=== PATIENT | female | born 1985 | race Caucasian/White ===

== ENCOUNTER 2016-05-27 17:53 | Emergency (ER) | payer SELFPAY ==
[2016-05-27 18:51] LABS: BASOPHILS 0.2 % (0.0-2.0); EOSINOPHILS 2.1 % (0-7); HEMATOCRIT 38.3 % (36.0-48.0); IMMATURE GRANULOCYTES 0.3 % (0-5); LYMPHOCYTES 28.6 % (15-50); MCH 30.7 pg (26.0-34.0); MCHC 33.9 g/dL (31.0-37.0); MCV 90.5 fL (80.0-100.0); MEAN PLATELET VOLUME 9.5 fL (7.4-10.4); MONOCYTES 6.6 % (2-11); NEUTROPHILS 62.2 % (40-80); PLATELET COUNT 162 10x3/uL (130-400); RBC 4.23 10x6/uL (4.00-5.40); RDW 13.1 % (11.5-14.5); WBC 8.7 10x3/uL (4.8-10.8)
[2016-05-27 19:12] LABS: HCG SERUM POSITIVE (NEGATIVE)
== END 2016-05-28 00:35 | disposition home or self-care (01) ==
LOC: D.ER 17:53
PROVIDERS: Family Medicine
DX: O20.9 Hemorrhage in early pregnancy, unspecified (principal); Z3A.14 14 weeks gestation of pregnancy; F17.200 Nicotine dependence, unspecified, uncomplicated

== ENCOUNTER → 2016-09-23 13:45 | Outpatient (CLI) | payer MEDICAID ==
[2016-09-23 14:20] LABS: APPEARANCE HAZY (CLEAR); BILIRUBIN NEGATIVE (NEGATIVE); COLOR YELLOW (YELLOW); GLUCOSE NEGATIVE (NEGATIVE); KETONE NEGATIVE (NEGATIVE); LEUKOCYTE ESTERASE NEGATIVE (NEGATIVE); NITRITE NEGATIVE (NEGATIVE); PROTEIN NEGATIVE (NEGATIVE); UROBILINOGEN NORMAL (NORMAL)
[2016-09-23 17:18] LABS: BASOPHILS 0.2 % (0-2); EOSINOPHILS 1.9 % (0-7); HEMATOCRIT 34.5 % (36.0-48.0); HEMOGLOBIN 11.9 g/dL (12-16); IMMATURE GRANULOCYTES 0.6 % (0-5); LYMPHOCYTES 20.4 % (15-50); MCH 31.8 pg (26.0-34.0); MCHC 34.5 g/dL (31.0-37.0); MCV 92.2 fL (80.0-100.0); MEAN PLATELET VOLUME 9.1 fL (7.4-10.4); MONOCYTES 5.3 % (2-11); NEUTROPHILS 71.6 % (40-80); PLATELET COUNT 146 10x3/uL (130-400); RBC 3.74 10x6/uL (4.00-5.40); RDW 13.8 % (11.5-14.5); WBC 11.5 10x3/uL (4.8-10.8)
[2016-09-23 17:31] LABS: ALBUMIN 2.7 g/dL (3.4-5.0); ALKALINE PHOSPHATASE 93 U/L (46-116); ALT (SGPT) 18 U/L (10-68); BILIRUBIN - TOTAL 0.26 mg/dL (0.2-1.3); CALC OSMOLALITY 272 mosm/kg (275-300); CALCIUM 8.6 mg/dL (8.5-10.1); CARBON DIOXIDE 23.9 mmol/L (21.0-32.0); CHLORIDE - SERUM 105 mmol/L (98-107); CREATININE - SERUM 0.3 mg/dL (0.6-1.3); GLUCOSE 90 mg/dL (74-106); POTASSIUM - SERUM 3.7 mmol/L (3.5-5.1); PROTEIN - SERUM 6.6 g/dL (6.4-8.2); SODIUM 138 mmol/L (136-145); UREA NITROGEN 4 mg/dL (7-18); eGFR NON AFRICAN AMERICAN > 90 mL/min (90-120)
== END | disposition home or self-care (01) ==
LOC: D.LDO 13:45
PROVIDERS: Obstetrics & Gynecology
DX: Z34.83 Encounter for supervision of other normal pregnancy, third trimester (principal); Z3A.30 30 weeks gestation of pregnancy

== ENCOUNTER 2016-11-22 05:40 | Inpatient (IN) | payer MEDICAID ==
[~2016-11-22] VITALS: Ht 167.6 cm; Wt 75.3 kg
[2016-11-22] MEDS ORDERED: PRENAVITE1 TAB PO (05:42)
[2016-11-22] MEDS ORDERED: CLARITIN 10 MG10 MG PO (05:42)
[2016-11-22 06:06] VITALS: BP 124/69; Ht 167.6 cm; Wt 75.3 kg
[2016-11-22 06:16] LABS: HEMATOCRIT 37.3 % (36.0-48.0); HEMOGLOBIN 12.9 g/dL (12-16); MCH 32.1 pg (26.0-34.0); MCHC 34.6 g/dL (31.0-37.0); MCV 92.8 fL (80.0-100.0); MEAN PLATELET VOLUME 10.3 fL (7.4-10.4); RBC 4.02 10x6/uL (4.00-5.40); RDW 13.7 % (11.5-14.5); WBC 13.1 10x3/uL (4.8-10.8)
[2016-11-22 06:43] LABS: APPEARANCE CLEAR (CLEAR); BILIRUBIN NEGATIVE (NEGATIVE); COLOR YELLOW (YELLOW); GLUCOSE NEGATIVE (NEGATIVE); KETONE NEGATIVE (NEGATIVE); LEUKOCYTE ESTERASE NEGATIVE (NEGATIVE); NITRITE NEGATIVE (NEGATIVE); PROTEIN NEGATIVE (NEGATIVE); SPECIFIC GRAVITY 1.005 (1.005-1.020); UROBILINOGEN NORMAL (NORMAL)
--- NOTE | 2016-11-22 16:14 | NUR ---
PT AMB TO ROOM 1257 WITHOUT ASSISTANCE. PT AND FAMILY ORIENTED TO ROOM. PT DENIES PAIN OR NEEDS AT THIS TIME.
--- NOTE | 2016-11-22 17:06 | NUR ---
EPIFOAM AND DERMAPLAST PROVIDED TO PT AND TEACHING PROVIDED ON USE. PT VERBALIZED UNDERSTANDING. INFANT UP IN ARMS BONDING AND FAMILY IN ROOM AT THIS TIME. PT DENIES PAIN OR FURTHER NEEDS. WILL CONT TO MONITOR.
--- NOTE | 2016-11-22 18:17 | NUR ---
ROUNDS MADE. PT REPORTS HAVING BM AND NO TOILET PAPER IN BATHROOM. ALSO PT DESIRES TO SHOWER. TOILET PAPER, TOWELS, SOAP PROVIDED. PIV TO LT WRIST TAPED FOR SHOWER. PT DENIES FURTHER NEEDS OR PAIN AT THIS TIME.
[2016-11-22 19:10] VITALS: BP 126/75
--- NOTE | 2016-11-22 19:10 | NUR ---
PT. AWAKE AND ORIENTED. WALKING AROUND IN ROOM BUT BACK TO BED FOR ASSESSMENT. RATES PAIN A 1 OF 10 ON PAIN SCALE. FUNDUS FIRM U/2 AND LOCHIA RUBRA MOD. FAMILY AT BEDSIDE. SALINE LOCK NOTED IN LT WRIST. NO REDNESS NOR EDEMA AT SITE NOTED. BREATH SOUNDS CLEAR AND BOWEL SOUNDS AUDIBLE. DENIES ANY PAIN IN LOWER EXTREMITIES. DENIES ANY NEEDS AT THIS TIME.
--- NOTE | 2016-11-22 20:07 | NUR ---
PT INFANT AT THIS TIME. PT C/O INCREASED ABD CRAMPING BECOMING MORE FREQUENT. PAIN 6/10, REQUEST NORCO, GIVEN PER REQUEST. PT EDUCATED THAT INCREASED CRAMPING WITH BREAST FEEDING WAS NORMAL, VERBALIZES UNDERSTANDING. PT ALSO EXPRESSED CONCERN ABOUT "FEELING GUSHES OF BLOOD." EXPLAINED TO PT THAT WHEN HER UTERUS ESSENTIALLY CONTRACTS LIKE DURING LABOR TO CONTRACT BACK TO PREPREGANCY STATE, CAUSING BLOOD TO BE PUSHED OUT. INSTRUCTED TO NOTIFY RN WHEN COMPLETE AND FUNDAL CHECK CAN BE DONE. VERBALIZED UNDERSTANDING. S/O AT BEDSIDE. BED IN LOW POSITION WITH UPPER SIDE RAILS RAISED X2. CL AND PHONE WITHIN REACH. WILL CONT TO MONITOR AND ASSIST PRN.
--- NOTE | 2016-11-22 20:43 | NUR ---
PT. RATES PAIN 0 OF 10. 3 CUPS OF ICE WATER PROVIDED TO PT. PER HER REQUEST. AT PRESENT. DENIES ANY OTHER NEEDS AT THIS TIME. INFORMED PT. OF NOURISHMENTS KEPT ON THE UNIT AND PT. STATED UNDERSTANDING BUT NOT DESIRE ANYTHING AT THIS TIME.
--- NOTE | 2016-11-22 22:28 | NUR ---
AMBULATING IN ROOM. DENIES ANY NEEDS. IN OPEN CRIB AT BEDSIDE. PT. DESIRES FOR TO STAY IN ROOM. FOB SLEEPING ON SOFA.
--- NOTE | 2016-11-22 23:02 | NUR ---
MORE ICE WATER AND AN ADDITIONAL PILLOW GIVEN TO PT. PER HER REQUEST. FOB SLEEPING ON SOFA. PT. DENIES ANY FURTHER NEEDS. AT PRESENT.
--- NOTE | 2016-11-23 00:38 | NUR ---
ROUNDS MADE PER Te HOFFMAN RN SEE ALD SHEET FOR CHARTING.
--- NOTE | 2016-11-23 02:33 | NUR ---
INFANT TRANSPORTED VIA CRIB TO PT'S ROOM FOR NURSING. PT WAKENED. ID BANDS (472) VERIFIED PER PROTOCOL. INFANT PLACED IN PT'S ARMS. NO NEEDS VOICED AT THIS TIME.
--- NOTE | 2016-11-23 03:05 | NUR ---
PT RINGS CALL LIGHT REQUESTING PAIN MEDICATION FOR ABD CRAMPING. NORCO5/325MG ONE TAB TAKENTO PT'S ROOM AND ADMINISTERED. PT HAS A DRINK ALREADY. PT DENIES FURTHER NEEDS AT THIS TIME. UP IN PT'S ARMS. CRIB PLACED AT PT'S BEDSIDE TO PLACE IN WHEN PT IS READY TO SLEEP AGAIN.
--- NOTE | 2016-11-23 04:00 | NUR ---
NBN NURSE,Raquel LANG RN TO PT'S ROOM TO CHECK ON INFANT. REPORT REC'D THAT PT WAS AWAKENED PER NBN NURSE TO ASSESS FEEDING. NO NEEDS REPORTED.
--- NOTE | 2016-11-23 06:45 | NUR ---
ROUNDS MADE. PT UP AMBULATING IN ROOM W/ UP IN ARMS. PT DENIES NEEDS AT THIS TIME.
[2016-11-23 06:49] LABS: BASOPHILS 0.2 % (0-2); EOSINOPHILS 1.5 % (0-7); HEMATOCRIT 37.2 % (36.0-48.0); HEMOGLOBIN 12.7 g/dL (12-16); IMMATURE GRANULOCYTES 0.3 % (0-5); LYMPHOCYTES 20.9 % (15-50); MCH 31.5 pg (26.0-34.0); MCHC 34.1 g/dL (31.0-37.0); MCV 92.3 fL (80.0-100.0); MONOCYTES 6.7 % (2-11); NEUTROPHILS 70.4 % (40-80); PLATELET COUNT 156 10x3/uL (130-400); RBC 4.03 10x6/uL (4.00-5.40); RDW 13.4 % (11.5-14.5); WBC 13.3 10x3/uL (4.8-10.8)
[2016-11-23 07:26] LABS: RAPID PLASMA REAGIN Non Reactive (Non Reactive)
[2016-11-23 08:25] VITALS: BP 108/64
--- NOTE | 2016-11-23 08:25 | NUR ---
THIS RN TO ROOM FOR SHIFT ASSESSMENT. PT RESTING ON RIGHT SIDE, . PT EYES CLOSED, ALERTS TO THIS RN'S VOICE. INFANT REMOVED FROM BED AND PLACED IN CRIBETTE. PT RATES PAIN 2/10 AT THIS TIME, DENIES NEED FOR ANY INTERVENTION. SHIFT ASSESSMENT COMPLETE, VSS, SEE FLOWSHEET FOR DOC. LOCHIA DISCUSSED WITH PT, PT DENIES ANY CONCERNS. LOCHIA FLOW AND WHAT TO REPORT DISCUSSED WITH PT, UNDERSTANDING VERBALIZED. D/C TO HOME DISCUSSED TODAY, PT STATES SHE IS "MORE THAN READY TO GO." PT DENIES ANY NEEDS AT THIS TIME. PT INSTRUCTED TO CALL FOR ANY NEEDS. UNDERSTANDING VERBALIZED. SRUx2, CL IN REACH. INFANT REMAINS IN CRIBETTE, PT UP TALKING WITH VISITOR. WILL CONT TO MONITOR.
--- NOTE | 2016-11-23 08:41 | NUR ---
Dorothy Bahena 11/23/16 LE@ 8:20 O: Nursery nurse just brought in room, patient attempting to smoothie , gently rocking infant, and FOB on sofa sleeping. Congratulated on delivery, asked how is going, can I help? Patient states, "Fine, this is my 3rd baby, I breastfed before." Asked if her nipples were sore from feeding? Patient states, "Yes, a little but it's normal, I know what to do." Observed sucking on hand, briefly explain feeding cues and offer to help latch if needed, patient declined. When feeding hold tummy to tummy nose opposite of nipple, gently support head, and allow to self-latch. Praised for , encouraged to continue to latch infant for every feeding, this will help with establishing your milk supply. If you would like any help with , please call nursery and let LC know, patient verbally agrees. Asked if any questions or concerns, patient declined. A: Patient appears confident with , declines help from LC. P: Continue to support exclusively . Pearl Dudley
--- NOTE | 2016-11-23 09:33 | NUR ---
PT CENTRIFUGAL DRIER OPERATOR LIGHT, THIS RN TO ROOM. PT REQUESTS BOTTLE FOR INFANT. NSY NOTIFIED, BOTTLE PROVIDED FOR INFANT. IV REMOVAL DISCUSSED WITH PT FOR DISCHARGE. PT STATES SHE AND DR CARL DISCUSSED POSSIBLE CT SCAN TODAY FOR ISSUES DURING . PT INFORMED WE WILL WAIT TO REMOVE IV UNTIL FURTHER ORDER CLARIFICATION ON CT SCAN. UNDERSTANDING VERBALIZED. PT DENIES FURTHER NEEDS. SRUx2, CL IN REACH. FOB FEEDING INFANT. WILL CONT TO MONITOR.
--- NOTE | 2016-11-23 09:35 | NUR ---
DR CARL PHONED, CT SCAN DISCUSSED. DR CARL STATES THAT HE IS ATTEMPTING TO GET IT SCHEDULED, WILL UPDATE IF ABLE TO HAVE IT DONE TODAY, IF NOT MAY BE DONE AT ANOTHER SCHEDULED DATE POST DISCHARGE. DR CARL INFORMED PT ADAMANT SHE WANTS TO DISCHARGE AT 24 HOURS, AND IF CT NOT DONE BY THEN SHE WOULD LIKE TO GO HOME. DR CARL STATES THAT IS FINE.
--- NOTE | 2016-11-23 11:24 | NUR ---
THIS RN TO ROOM FOR PT CHECK. PT DENIES PAIN OR ANY NEEDS AT THIS TIME. SRUx2, CL IN REACH. WILL CONT TO MONITOR. FOB ON BEDSIDE COUCH.
--- NOTE | 2016-11-23 12:02 | NUR ---
PT CALLS OUT QUALITY ASSURANCE INSPECTOR LIGHT REQUESTING IV OUT. THIS RN TO ROOM. PIV REMOVED WITHOUT INCIDENT, PRESSURE APPLIED. BANDAID APPLIED. PT PROVIDED WITH TOWELS AND CLOTHS FOR SHOWER PER REQUEST. PT ALSO PROVIDED WITH PERIPADS AND DISPOSABLE PANTIES PER REQUEST. PT DENIES FURTHER NEEDS AT THIS TIME. WILL CONT TO MONITOR.
--- NOTE | 2016-11-23 12:49 | NUR ---
PT CALLS OUT OFFBEARER SEWER PIPE LIGHT, REQUESTS NORCO FOR PAIN. THIS RN TO ROOM. PT STATES THAT PAIN IS 2/10 RESTING, BUT WORSE WITH MOVEMENT AND WHEN SHE WAS UP TO SHOWER. PT ADMIN PRN NORCO FOR PAIN ORDERED, SEE EMAR FOR DOC. PT ALSO PROVIDED WITH FRESH ICE WATER. PT DENIES ANY OTHER NEEDS AT THIS TIME. SRUx2, CL IN REACH. PT VISITING WITH FAMILY. WILL CONT TO MONITOR.
[2016-11-23] MEDS ORDERED: HYDROCODON-ACE1 EAC7 PO (13:19)
--- NOTE | 2016-11-23 14:45 | NUR ---
PT GIVEN D/C INSTRUCTIONS WELL WRITTEN PRESCRIPTION FOR PAIN CONTROL POST D/C TO HOME. PT VERBALIZES UNDERSTANDING AND DENIES QUESTIONS. PT SIGNS CHART COPIES. PT INSTRUCTED TO CALL OUT WATER PLANT MAINTENANCE MECHANIC LIGHT ONCE IS DRESSED AND BUCKLED IN CARSEAT FOR W/C OUT TO PRIVATE VEHICLE. PT REFUSES W/C, BUT STATES SHE WILL NOTIFY THIS RN WHEN IS BUCKLED AND READY.
--- NOTE | 2016-11-23 15:07 | NUR ---
PT OFF UNIT AMBULATORY TO PRIVATE VEHICLE, FOB TO DRIVE HOME. PT HAS INSTRUCTIONS AND RX IN HAND.
== END 2016-11-23 15:07 | disposition home or self-care (01) | DRG 775 ==
LOC: D.LD 05:40
PROVIDERS: ADMIT Obstetrics & Gynecology
PROC: 10E0XZZ Delivery of Products of Conception, External Approach (ICD-10-PCS; principal; 2016-11-22)
PROC: 10907ZC Drainage of Amniotic Fluid, Therapeutic from Products of Conception, Via Natural or Artificial Opening (ICD-10-PCS; 2016-11-22)
PROC: 3E033VJ Introduction of Other Hormone into Peripheral Vein, Percutaneous Approach (ICD-10-PCS; 2016-11-22)
PROC: 0HQ9XZZ Repair Perineum Skin, External Approach (ICD-10-PCS; 2016-11-22)
DX: O99.334 Smoking (tobacco) complicating childbirth (principal); O70.0 First degree perineal laceration during delivery; O75.89 Other specified complications of labor and delivery; Z37.0 Single live birth; Z3A.39 39 weeks gestation of pregnancy